=== PATIENT | male | born 2000 | race African-American/Black ===

== ENCOUNTER 2025-03-15 18:04 | Emergency (ER) | payer OTHER ==
[~2025-03-15] VITALS: Ht 170.2 cm; Wt 89.4 kg
[2025-03-15 18:09] VITALS: BP_DIAS 80; TEMP 97
[2025-03-15 18:13] VITALS: BP_SYST 130; O2SAT 100
== END 2025-03-15 20:31 | disposition left against medical advice (07) ==
LOC: M ED 18:04
DX: Z53.21 Procedure and treatment not carried out due to patient leaving prior to being seen by health care provider (principal)

== ENCOUNTER → 2025-03-15 | Outpatient (CLI) | payer OTHER ==
[2025-03-15 18:43] LABS: BASO # 0.1 10^3/uL (0.0-0.2); BASO % 1.2 % (0.0-1.0); EOS # 3.4 10^3/uL (0.0-0.5); HEMATOCRIT 49.1 % (42.0-52.0); LYMPH # 1.9 10^3/uL (1.5-5.0); LYMPH % 15.8 % (24.0-44.0); MEAN CORPUSCULAR HEMOGLOBIN 25.1 pg (27.0-33.0); MEAN CORPUSCULAR HGB CONC 30.5 g/dl (32.0-36.5); MEAN CORPUSCULAR VOLUME 82.2 fl (80.0-96.0); NEUTROPHILS # 5.6 10^3/uL (1.5-8.5); NEUTROPHILS % 46.8 % (36.0-66.0); PLATELET COUNT, AUTOMATED 352 10^3/uL (150-450); RED BLOOD COUNT 5.97 10^6/uL (4.30-6.10)
[2025-03-15 18:58] LABS: ALBUMIN 3.3 G/DL (3.2-5.2); ALKALINE PHOSPHATASE 99 U/L (40-129); ALT/SGPT 44 U/L (7.0-40); AST/SGOT 28 U/L (<34); BILIRUBIN,TOTAL 0.6 MG/DL (0.3-1.2); BLOOD UREA NITROGEN 13 MG/DL (9-23); CALCIUM LEVEL 9.1 MG/DL (8.5-10.1); CARBON DIOXIDE LEVEL 26 MMOL/L (20-31); CHLORIDE LEVEL 105 MMOL/L (98-107); CREATININE FOR GFR 0.99 MG/DL (0.70-1.30); GLOMERULAR FILTRATION RATE > 90.0 (>60); GLUCOSE, FASTING 81 MG/DL (60-100); POTASSIUM SERUM 4.1 MMOL/L (3.5-5.1); SODIUM LEVEL 140 MMOL/L (136-145); TOTAL PROTEIN 7.2 G/DL (5.7-8.2)
== END ==
LOC: M LAB 17:31
PROVIDERS: ATTEND Physician Assistant
DX: L98.8 Other specified disorders of the skin and subcutaneous tissue (principal); L30.9 Dermatitis, unspecified